=== PATIENT | female | born 1995 | race Caucasian/White ===

== ENCOUNTER 2018-01-22 21:47 | Emergency (ER) | payer MEDICARE ==
[~2018-01-22] VITALS: Ht 157.5 cm; Wt 65.8 kg
[2018-01-22 21:49] VITALS: BP_SYST 127
[2018-01-22] MEDS ORDERED: KETOROLAC TROMETHAMINE 60 MG/2 ML VIAL IM ONE (22:00)
[2018-01-22 22:39] VITALS: BP_SYST 122
[2018-01-27 02:06] LABS: CHLAMYDIA TRACHOMATIS NAA Negative (Negative); NEISSERIA GONORRHOEAE NAA Negative (Negative)
== END 2018-01-22 22:39 | disposition home or self-care (01) ==
LOC: SED 21:47
DX: N39.0 Urinary tract infection, site not specified (principal); R03.0 Elevated blood-pressure reading, without diagnosis of hypertension
CPT/HCPCS: 81025; 87086; 87186; 87491; 87591; 99284; 96372; J1885